=== PATIENT | male | born 1990 | race African-American/Black ===

== ENCOUNTER 2024-01-22 14:59 | Emergency (ER) | payer OTHER ==
[~2024-01-22] VITALS: Ht 170.2 cm; Wt 65.7 kg
[2024-01-22] MEDS ORDERED: DOXY-346 PO (16:09)
[2024-01-22] MEDS ORDERED: DIPH25CA66 PO (16:14)
[2024-01-22] MEDS: DexAMETHasone 4 MG TAB PO ONE (20:28)
[2024-01-22] MEDS: FAMOTIDINE 20 MG TAB PO ONE (20:29)
[2024-01-22] MEDS: diphenhdrAMINE HCL 25 MG CAP PO ONE (20:29)
[2024-01-22 20:30] VITALS: BP 138/74; PULSE 73; RESP 18; TEMP 98.2; O2SAT 98
== END 2024-01-22 20:44 | disposition home or self-care (01) ==
LOC: ER 14:59
DX: T63.441A Toxic effect of venom of bees, accidental (unintentional), initial encounter (principal); Y92.89 Other specified places as the place of occurrence of the external cause
CPT/HCPCS: 99284; J8540